=== PATIENT | female | born 1970 | race Caucasian/White ===

== ENCOUNTER 2017-06-25 16:24 | Inpatient (IN) | payer OTHER ==
[~2017-06-25] VITALS: Ht 167.6 cm; Wt 126.7 kg
[2017-06-25 16:39] VITALS: Ht 167.6 cm; Wt 126.7 kg
[2017-06-25 20:46] LABS: BASOPHIL % 0.3 % (0-2); PLATELET COUNT 209 x10^3mcL (130-400); RED CELL DISTRIBUTION WIDTH 13.6 % (11.5-14.5)
[2017-06-25 20:56] LABS: CALCIUM 9.5 mg/dL (8.5-10.1); CARBON DIOXIDE 26.7 mmol/L (21-32); CHLORIDE SERUM 101 mmol/L (98-107); CREATININE SERUM 0.7 mg/dL (0.6-1.0); GFR1 > 60 mL/min; GLUCOSE SERUM 324 mg/dL (74-106); POTASSIUM SERUM 4.6 mmol/L (3.5-5.1); SODIUM SERUM 142 mmol/L (136-145)
[2017-06-25 20:57] LABS: ALBUMIN 3.6 g/dL (3.4-5.0); ALKALINE PHOSPHATASE 67 U/L (46-116); ALT/SGPT 40 U/L (14-59); AST/SGOT 34 U/L (15-37); BILIRUBIN TOTAL 0.43 mg/dL (0.20-1.00); HDL CHOLESTEROL 58 mg/dL (40-60); TOTAL PROTEIN, SERUM 7.5 g/dL (6.4-8.2)
[2017-06-25 20:58] LABS: CHOLESTEROL 114 mg/dL (<200)
[2017-06-25] MEDS ORDERED: PHECLUD PO (21:06)
[2017-06-25] MEDS ORDERED: LEVOFLOXACIN500 M1 PO (21:08)
[2017-06-25] MEDS ORDERED: ASMANEX TW0.22 MG/A1 INH (21:09)
[2017-06-25] MEDS ORDERED: PROAIR RES117 MCG/Ac INH (21:09)
[2017-06-25] MEDS ORDERED: VENTOLIN H0.09 MG/A1 IH (21:10)
[2017-06-25] MEDS ORDERED: ALBUTEROL0.63 MG/3 INH (21:11)
[2017-06-25] MEDS ORDERED: MULTI-VITAMINS1 TAB PO (21:12)
[2017-06-25] MEDS ORDERED: FISH OIL1000 MG PO (21:12)
[2017-06-25] MEDS ORDERED: AMPYRA10 M1 PO (21:13)
[2017-06-25] MEDS ORDERED: GABAPENTIN300 M4 PO (21:13)
[2017-06-25] MEDS ORDERED: METFORMIN HCL1000 MG PO (21:13)
[2017-06-25] MEDS ORDERED: LOSARTAN POTASS25 M1 PO (21:14)
[2017-06-25] MEDS ORDERED: LIPI10 PO (21:14)
[2017-06-25] MEDS ORDERED: ASPIR 8181 MG PO (21:14)
[2017-06-25] MEDS ORDERED: VICTOZA6 MG/M1 SC (21:15)
[2017-06-25] MEDS ORDERED: TRESIBA FL100 UNIT/1 SC (21:15)
[2017-06-25 21:18] LABS: UA SPECIFIC GRAVITY >=1.030 (1.005-1.035); microscopic required? YES; urine erythrocyte NEGATIVE (NEGATIVE)
[2017-06-25 22:45] VITALS: BP 149/76
[2017-06-26] VITALS (7 sets, daily range): BP systolic 101–146; BP diastolic 57–78
[2017-06-26 02:42] LABS: MAGNESIUM 1.9 mg/dL (1.8-2.4); PHOSPHOROUS 4.5 mg/dL (2.5-4.9)
[2017-06-26 02:52] LABS: T3 TOTAL 0.7 ng/mL
[2017-06-26 02:55] LABS: FREE T4 1.23 ng/dL (0.76-1.46); FREE THYROXINE INDEX 2.6 ug/dL (1.4-4.5); T4(THYROXINE) 7.8 ug/dL (4.7-13.3)
[2017-06-26 07:06] LABS: AMPHETAMINE QUAL UR NONE DETECTED (NEG <=1000)
[2017-06-26 10:25] LABS: CALCIUM 8.9 mg/dL (8.5-10.1); CARBON DIOXIDE 27.3 mmol/L (21-32); CREATININE SERUM 1.2 mg/dL (0.6-1.0); POTASSIUM SERUM 3.9 mmol/L (3.5-5.1)
[2017-06-26 10:58] LABS: PLATELET COUNT 260 x10^3mcL (130-400); RED CELL DISTRIBUTION WIDTH 13.7 % (11.5-14.5)
[2017-06-26 11:00] LABS: BASOPHIL % 0 % (0-2)
[2017-06-27 06:16] VITALS: BP 118/63
[2017-06-27 06:18] LABS: PLATELET COUNT 227 x10^3mcL (130-400); RED CELL DISTRIBUTION WIDTH 13.4 % (11.5-14.5)
[2017-06-27 06:26] LABS: CALCIUM 8.4 mg/dL (8.5-10.1); CARBON DIOXIDE 26.9 mmol/L (21-32); CHLORIDE SERUM 105 mmol/L (98-107); CREATININE SERUM 0.6 mg/dL (0.6-1.0); GFR1 > 60 mL/min; GLUCOSE SERUM 339 mg/dL (74-106); POTASSIUM SERUM 4.5 mmol/L (3.5-5.1); SODIUM SERUM 143 mmol/L (136-145)
[2017-06-27 06:31] LABS: BASOPHIL % 0 % (0-2)
[2017-06-27 09:01] VITALS: BP 118/59
[2017-06-27 13:04] VITALS: BP 121/54
[2017-06-27 17:35] VITALS: BP 129/68
[2017-06-27 20:44] VITALS: BP 131/64
[2017-06-28 04:58] VITALS: BP 132/68
[2017-06-28] MEDS ORDERED: CLA10 PO (07:10)
[2017-06-28] MEDS ORDERED: TES100 PO (07:11)
[2017-06-28] MEDS ORDERED: MONTELUKAST SOD10 M1 PO (07:13)
[2017-06-28] MEDS ORDERED: PEP20 PO (07:14)
[2017-06-28] MEDS ORDERED: LAC PO (07:15)
[2017-06-28] MEDS ORDERED: MVIL PO (07:16)
[2017-06-28] MEDS ORDERED: PREDNISONE10 MG PO (07:17)
[2017-06-28] MEDS ORDERED: PULMICORT180 MCG/Ac INH (07:21)
[2017-06-28] MEDS ORDERED: CLINDAMYCIN HC300 MG PO (07:52)
[2017-06-28] MEDS ORDERED: LEVAQUIN750 MG PO (07:52)
[2017-06-28 08:57] VITALS: BP 120/61
[2017-06-28 10:40] VITALS: BP 120/61
== END 2017-06-28 11:25 | disposition home or self-care (01) | DRG 177 ==
LOC: ED 16:24 → DU 22:04
PROVIDERS: Emergency Medicine; Family Medicine Sports Medicine
PROC: 5A09357 Assistance with Respiratory Ventilation, Less than 24 Consecutive Hours, Continuous Positive Airway Pressure (ICD-10-PCS; principal; 2017-06-26)
DX: J69.0 Pneumonitis due to inhalation of food and vomit (principal); N17.0 Acute kidney failure with tubular necrosis; J96.21 Acute and chronic respiratory failure with hypoxia; J45.901 Unspecified asthma with (acute) exacerbation; Z68.42 Body mass index [BMI] 45.0-49.9, adult; E66.01 Morbid (severe) obesity due to excess calories; G35 Multiple sclerosis; E11.40 Type 2 diabetes mellitus with diabetic neuropathy, unspecified; J20.9 Acute bronchitis, unspecified; I10 Essential (primary) hypertension; Z53.29 Procedure and treatment not carried out because of patient's decision for other reasons; G47.33 Obstructive sleep apnea (adult) (pediatric); E78.00 Pure hypercholesterolemia, unspecified; Z87.891 Personal history of nicotine dependence; Z90.49 Acquired absence of other specified parts of digestive tract; Z90.710 Acquired absence of both cervix and uterus; Z79.899 Other long term (current) drug therapy; Z79.82 Long term (current) use of aspirin; Z79.84 Long term (current) use of oral hypoglycemic drugs; Z23 Encounter for immunization
CPT/HCPCS: 82962; 83880; 84439; 87804; 90658; J1644; J1815; J2543; J2930; J7030; J7613; J7620; J7633; Q0092

== ENCOUNTER 2017-07-07 14:55 | Emergency (ER) | payer OTHER ==
[~2017-07-07] VITALS: Ht 167.6 cm; Wt 137.4 kg
[~2017-07-07 14:55] MED LIST: ALBUTEROL0.63 MG/3 INH; AMPYRA10 M1 PO; ASMANEX TW0.22 MG/A1 INH; ASPIR 8181 MG PO; CLA10 PO; CLINDAMYCIN HC300 MG PO; FISH OIL1000 MG PO; GABAPENTIN300 M4 PO; LAC PO; LEVAQUIN750 MG PO; LEVOFLOXACIN500 M1 PO; LIPI10 PO; LOSARTAN POTASS25 M1 PO; METFORMIN HCL1000 MG PO; MONTELUKAST SOD10 M1 PO; MULTI-VITAMINS1 TAB PO; MVIL PO; PEP20 PO; PHECLUD PO; PREDNISONE10 MG PO; PROAIR RES117 MCG/Ac INH; PULMICORT180 MCG/Ac INH; TES100 PO; TRESIBA FL100 UNIT/1 SC; VENTOLIN H0.09 MG/A1 IH; VICTOZA6 MG/M1 SC
[2017-07-07 15:58] VITALS: BP 135/73
== END 2017-07-07 15:58 | disposition home or self-care (01) ==
LOC: ED 14:55
DX: R60.9 Edema, unspecified (principal); B37.3 Candidiasis of vulva and vagina; A60.00 Herpesviral infection of urogenital system, unspecified; J45.909 Unspecified asthma, uncomplicated; E11.40 Type 2 diabetes mellitus with diabetic neuropathy, unspecified; Z90.710 Acquired absence of both cervix and uterus

== ENCOUNTER 2017-08-08 04:54 | Inpatient (IN) | payer OTHER ==
[~2017-08-08] VITALS: Ht 167.6 cm; Wt 137.5 kg
[2017-08-08 06:13] LABS: BASOPHIL % 0.7 % (0-2); PLATELET COUNT 250 x10^3mcL (130-400)
[2017-08-08 06:20] LABS: CALCIUM 8.9 mg/dL (8.5-10.1); CARBON DIOXIDE 32.4 mmol/L (21-32); CHLORIDE SERUM 101 mmol/L (98-107); CREATININE SERUM 0.8 mg/dL (0.6-1.0); GFR1 > 60 mL/min; GLUCOSE SERUM 264 mg/dL (74-106); POTASSIUM SERUM 3.9 mmol/L (3.5-5.1); SODIUM SERUM 139 mmol/L (136-145)
[2017-08-08 06:24] LABS: ALKALINE PHOSPHATASE 57 U/L (46-116); ALT/SGPT 43 U/L (14-59); AST/SGOT 27 U/L (15-37); BILIRUBIN TOTAL 0.4 mg/dL (0.20-1.00); TOTAL PROTEIN, SERUM 6.8 g/dL (6.4-8.2)
[2017-08-08 06:26] LABS: microscopic required? NO
[2017-08-08 06:37] LABS: ALBUMIN 3.3 g/dL (3.4-5.0)
[2017-08-08 06:51] LABS: UA SPECIFIC GRAVITY <=1.005 (1.005-1.035); urine erythrocyte NEGATIVE (NEGATIVE)
[2017-08-08 07:00] LABS: RED CELL DISTRIBUTION WIDTH 14.9 % (11.5-14.5)
[2017-08-08] MEDS ORDERED: ESCITALOPRAM10 M1 (07:27)
[2017-08-08] MEDS ORDERED: POTASSIUM CHLO10 MEQ PO (07:27)
[2017-08-08] MEDS ORDERED: LASIX20 MG PO (07:27)
[2017-08-08] MEDS ORDERED: ZANTAC 150150 MG PO (07:28)
[2017-08-08] MEDS ORDERED: CLEOCIN HCL300 MG PO (07:28)
[2017-08-08] MEDS ORDERED: VITAMIN B121000 MCG PO (07:28)
[2017-08-08] MEDS ORDERED: VITAMIN-D1000 IU PO (07:28)
[2017-08-08] MEDS ORDERED: ASPIR 8181 MG PO (07:39)
[2017-08-08 08:45] VITALS: BP 141/77
[2017-08-08 09:45] LABS: AMPHETAMINE QUAL UR NONE DETECTED (NEG <=1000)
[2017-08-08 09:48] LABS: T3 TOTAL 1.32 ng/mL
[2017-08-08 09:49] LABS: MAGNESIUM 1.5 mg/dL (1.8-2.4); PHOSPHOROUS 4.8 mg/dL (2.5-4.9)
[2017-08-08 09:52] LABS: CHOLESTEROL/HDL RATIO 2.6
[2017-08-08 09:58] LABS: FREE T4 1.21 ng/dL (0.76-1.46); FREE THYROXINE INDEX 2.5 ug/dL (1.4-4.5); T4(THYROXINE) 7.1 ug/dL (4.7-13.3)
[2017-08-08 10:00] VITALS: BP 141/77; BP 160/86
[2017-08-08 12:43] VITALS: BP 160/86
[2017-08-08 17:45] VITALS: BP 138/88
[2017-08-08 20:58] VITALS: BP 109/56
[2017-08-09 06:11] VITALS: BP 129/71
[2017-08-09 06:41] LABS: CALCIUM 8.2 mg/dL (8.5-10.1); CARBON DIOXIDE 29.8 mmol/L (21-32); CHLORIDE SERUM 104 mmol/L (98-107); CREATININE SERUM 0.5 mg/dL (0.6-1.0); GFR1 > 60 mL/min; GLUCOSE SERUM 177 mg/dL (74-106); MAGNESIUM 1.8 mg/dL (1.8-2.4); POTASSIUM SERUM 4.2 mmol/L (3.5-5.1); SODIUM SERUM 142 mmol/L (136-145)
[2017-08-09 06:45] LABS: BASOPHIL % 0.4 % (0-2); PLATELET COUNT 227 x10^3mcL (130-400)
[2017-08-09 07:10] LABS: RED CELL DISTRIBUTION WIDTH 14.8 % (11.5-14.5)
[2017-08-09 08:38] VITALS: BP 140/62
[2017-08-09 17:40] VITALS: BP 153/91
[2017-08-09 21:55] VITALS: BP 113/54
[2017-08-10 06:20] VITALS: BP 114/69
[2017-08-10 09:00] VITALS: BP 133/55
[2017-08-10] MEDS ORDERED: LIPI20 PO (11:56)
[2017-08-10] MEDS ORDERED: DIFLUCAN200 MG PO (12:00)
== END 2017-08-10 14:27 | disposition home or self-care (01) | DRG 368 ==
LOC: ED 04:54 → DU 07:10 → MU 07:10 → DU 08:48 → MU 08-09 06:02
PROVIDERS: Emergency Medicine; Family Medicine; Internal Medicine Gastroenterology
PROC: 0DB78ZX Excision of Stomach, Pylorus, Via Natural or Artificial Opening Endoscopic, Diagnostic (ICD-10-PCS; principal; 2017-08-09 14:00)
DX: B37.81 Candidal esophagitis (principal); E43 Unspecified severe protein-calorie malnutrition; N17.0 Acute kidney failure with tubular necrosis; L03.115 Cellulitis of right lower limb; Z68.42 Body mass index [BMI] 45.0-49.9, adult; K21.0 Gastro-esophageal reflux disease with esophagitis; M94.0 Chondrocostal junction syndrome [Tietze]; J45.909 Unspecified asthma, uncomplicated; E11.40 Type 2 diabetes mellitus with diabetic neuropathy, unspecified; G35 Multiple sclerosis; E11.65 Type 2 diabetes mellitus with hyperglycemia; G47.33 Obstructive sleep apnea (adult) (pediatric); E78.00 Pure hypercholesterolemia, unspecified; Z90.710 Acquired absence of both cervix and uterus; Z90.49 Acquired absence of other specified parts of digestive tract; E66.01 Morbid (severe) obesity due to excess calories; E83.51 Hypocalcemia; I27.20 Pulmonary hypertension, unspecified; I34.0 Nonrheumatic mitral (valve) insufficiency
CPT/HCPCS: 43235; 82962; 83880; 84439; 94150; J1200; J1450; J1610; J1644; J1885; J2250; J2310; J2405; J3010; J3475; J3490; J7030; J7620; Q0092

== ENCOUNTER 2018-08-01 16:29 | Emergency (ER) | payer OTHER, MEDICAID ==
[~2018-08-01] VITALS: Ht 167.6 cm; Wt 137.9 kg
[~2018-08-01 16:29] MED LIST changes: +CLEOCIN HCL300 MG PO; +DIFLUCAN200 MG PO; +ESCITALOPRAM10 M1; +LASIX20 MG PO; +LIPI20 PO; +POTASSIUM CHLO10 MEQ PO; +VITAMIN B121000 MCG PO; +VITAMIN-D1000 IU PO; +ZANTAC 150150 MG PO
[2018-08-01 16:50] VITALS: Ht 167.6 cm; Wt 137.9 kg
[2018-08-01 21:48] VITALS: BP 172/88
== END 2018-08-01 21:48 | disposition home or self-care (01) ==
LOC: ED 16:29
DX: M79.662 Pain in left lower leg (principal); G35 Multiple sclerosis; J45.909 Unspecified asthma, uncomplicated; E11.40 Type 2 diabetes mellitus with diabetic neuropathy, unspecified; F17.200 Nicotine dependence, unspecified, uncomplicated; E66.01 Morbid (severe) obesity due to excess calories; E78.00 Pure hypercholesterolemia, unspecified; Z68.42 Body mass index [BMI] 45.0-49.9, adult; Z90.710 Acquired absence of both cervix and uterus
CPT/HCPCS: Q0092